=== PATIENT | male | born 1975 | race African-American/Black ===

== ENCOUNTER 2018-08-28 09:05 | Emergency (ER) | payer OTHER, MEDICAID ==
[~2018-08-28] VITALS: Ht 172.7 cm; Wt 100.0 kg
[2018-08-28] MEDS ORDERED: VISCOUS LIDOCAINE 2% 15 ML UDC PO STA (09:55)
[2018-08-28] MEDS ORDERED: SODIUM CHLORIDE 0.9% 1,000 ML IV ONE (09:55)
[2018-08-28] MEDS ORDERED: FAMOTIDINE 20MG/2ML VIAL IV STA (09:55)
[2018-08-28] MEDS ORDERED: MAGNESIUM/ALUMINUM HYDROXIDE/SIMETHICONE 30ML UDC PO STA (09:55)
[2018-08-28] MEDS ORDERED: ONDANSETRON HCL 4MG/2ML INJ IV STA (09:55)
[2018-08-28] MEDS ORDERED: KETOROLAC 30MG/ML VIAL IV STA (09:55)
[2018-08-28] MEDS ORDERED: METOCLOPRAMIDE HCL 10MG/2ML VIAL IV ONE (10:30)
[2018-08-28 10:37] LABS: BASOPHILS % 0.3 % (0.0-2.0); EOSINOPHILS % 0.4 % (0.0-5.0); HEMATOCRIT. 37.6 % (42.0-52.0); HEMOGLOBIN. 11.6 g/dL (14.0-18.0); LYMPHOCYTES % 16.4 % (20.0-50.0); MEAN CORPUSCULAR HEMOGLOBIN 26.6 pg (28.0-32.0); MEAN CORPUSCULAR VOLUME 86.3 fL (80.0-94.0); MEAN PLATELET VOLUME 9.9 fl (7.4-10.4); MONOCYTES % 5.2 % (2.0-8.0); NEUTROPHILS % 77.7 % (40.0-76.0); PLATELET 221 x1000/uL (130-400); RED BLOOD CELL COUNT 4.36 mill/uL (4.7-6.1); RED CELL DISTRIBUTION WIDTH 15.3 % (11.6-14.6)
[2018-08-28 10:42] LABS: CHLORIDE 105 mEq/L (98-107)
[2018-08-28 10:47] LABS: ETHANOL BLOOD < 10 mg/dL
[2018-08-28 11:25] LABS: CLARITY URINE CLEAR (CLEAR); COLOR URINE DARK YELLOW (YELLOW); KETONES URINE TRACE (NEGATIVE); LEUKOCYTE ESTERASE URINE NEGATIVE (NEGATIVE); NITRITE URINE NEGATIVE (NEGATIVE); OCCULT BLOOD URINE NEGATIVE (NEGATIVE); PH URINE 5.5 (4.5-8.0); PROTEIN URINE 2+ (NEGATIVE); SPECIFIC GRAVITY URINE 1.032 (1.005-1.030)
[2018-08-28 12:00] LABS: *AMPHETAMINES SCREEN URINE PRESUMTIVE POSITIVE (NEGATIVE); *BARBITURATES SCREEN URINE NEGATIVE (NEGATIVE); *BENZODIAZEPINES SCREEN URINE NEGATIVE (NEGATIVE); *COCAINE SCREEN URINE NEGATIVE (NEGATIVE)
[2018-08-28] MEDS ORDERED: MORPHINE SULFATE 10 MG/ML CPJ IV ONE (12:00)
[2018-08-28] MEDS ORDERED: AZITHROMYCIN 500 MG TABLET PO ONE (12:00)
[2018-08-28] MEDS ORDERED: CEFTRIAXONE SODIUM 250 MG/VIAL IM ONE (12:00)
[2018-08-28 12:01] LABS: CANNABINOID URINE SCREEN PRESUMTIVE POSITIVE (NEGATIVE); METHADONE URINE SCREEN NEGATIVE (NEGATIVE); OPIATES URINE SCREEN NEGATIVE (NEGATIVE); PHENCYCLIDINE URINE SCREEN NEGATIVE (NEGATIVE)
[2018-08-28] MEDS ORDERED: CEFTRIAXONE SODIUM 1 G/VIAL IM ONE (13:15)
[2018-08-28 13:58] VITALS: BP 115/82
== END 2018-08-28 14:01 | disposition home or self-care (01) ==
LOC: ER 09:05
DX: N12 Tubulo-interstitial nephritis, not specified as acute or chronic (principal); R18.8 Other ascites; F15.10 Other stimulant abuse, uncomplicated; F12.10 Cannabis abuse, uncomplicated; D72.829 Elevated white blood cell count, unspecified; F17.200 Nicotine dependence, unspecified, uncomplicated
CPT/HCPCS: 36415; 74176; 76770; 80053; 80305; 81003; 83690; 84484; 85025; 87086; 93005; 96372; 96374; 96375; 99284; G0482; J0696; J1885; J2270; J2765; J3490; J7030

== ENCOUNTER 2018-09-03 09:50 | Emergency (ER) | payer MEDICAID, OTHER ==
[~2018-09-03] VITALS: Ht 172.7 cm; Wt 100.0 kg
[2018-09-03 09:59] VITALS: BP 142/104
== END 2018-09-03 15:30 | disposition left against medical advice (07) ==
LOC: ER 09:50
DX: R10.9 Unspecified abdominal pain (principal); Z53.21 Procedure and treatment not carried out due to patient leaving prior to being seen by health care provider

== ENCOUNTER 2018-09-24 22:37 | Emergency (ER) | payer OTHER, MEDICAID ==
[~2018-09-24] VITALS: Ht 172.7 cm; Wt 91.0 kg
[2018-09-25] MEDS ORDERED: DICYCLOMINE 10 MG/5 ML ORAL SYR PO ONE (01:15)
[2018-09-25] MEDS ORDERED: MAGNESIUM/ALUMINUM HYDROXIDE/SIMETHICONE 30ML UDC PO ONE (01:15)
[2018-09-25] MEDS ORDERED: VISCOUS LIDOCAINE 2% 15 ML UDC PO ONE (01:15)
[2018-09-25 01:43] LABS: CLARITY URINE CLEAR (CLEAR); COLOR URINE DARK YELLOW (YELLOW); KETONES URINE NEGATIVE (NEGATIVE); LEUKOCYTE ESTERASE URINE NEGATIVE (NEGATIVE); NITRITE URINE NEGATIVE (NEGATIVE); OCCULT BLOOD URINE NEGATIVE (NEGATIVE); PH URINE 5.5 (4.5-8.0); PROTEIN URINE 2+ (NEGATIVE); SPECIFIC GRAVITY URINE 1.028 (1.005-1.030)
[2018-09-25 01:49] LABS: CHLORIDE 110 mEq/L (98-107)
[2018-09-25 01:52] LABS: INR 1.2; PROTHROMBIN TIME 11.9 sec (9.1-11.1)
[2018-09-25 01:53] LABS: *AMPHETAMINES SCREEN URINE PRESUMTIVE POSITIVE (NEGATIVE); *BARBITURATES SCREEN URINE NEGATIVE (NEGATIVE)
[2018-09-25 01:54] LABS: *BENZODIAZEPINES SCREEN URINE NEGATIVE (NEGATIVE); *COCAINE SCREEN URINE NEGATIVE (NEGATIVE); CANNABINOID URINE SCREEN PRESUMTIVE POSITIVE (NEGATIVE); METHADONE URINE SCREEN NEGATIVE (NEGATIVE); OPIATES URINE SCREEN NEGATIVE (NEGATIVE); PHENCYCLIDINE URINE SCREEN PRESUMTIVE POSITIVE (NEGATIVE)
[2018-09-25 02:00] LABS: BASOPHILS % 0.6 % (0.0-2.0); EOSINOPHILS % 0.9 % (0.0-5.0); HEMATOCRIT. 37.7 % (42.0-52.0); HEMOGLOBIN. 11.6 g/dL (14.0-18.0); LYMPHOCYTES % 24.6 % (20.0-50.0); MEAN CORPUSCULAR HEMOGLOBIN 25.4 pg (28.0-32.0); MEAN CORPUSCULAR VOLUME 82.5 fL (80.0-94.0); MEAN PLATELET VOLUME 10.1 fl (7.4-10.4); MONOCYTES % 7.6 % (2.0-8.0); NEUTROPHILS % 66.3 % (40.0-76.0); PLATELET 209 x1000/uL (130-400); RED BLOOD CELL COUNT 4.57 mill/uL (4.7-6.1)
[2018-09-25] MEDS ORDERED: MORPHINE SULFATE 10 MG/ML CPJ IM ONE (03:00)
[2018-09-25 05:00] VITALS: BP 132/93
== END 2018-09-25 05:18 | disposition home or self-care (01) ==
LOC: ER 22:37
DX: K29.70 Gastritis, unspecified, without bleeding (principal); G89.29 Other chronic pain; F15.10 Other stimulant abuse, uncomplicated; R10.84 Generalized abdominal pain; F12.10 Cannabis abuse, uncomplicated; F16.10 Hallucinogen abuse, uncomplicated; I50.9 Heart failure, unspecified; E66.9 Obesity, unspecified; Z68.30 Body mass index [BMI] 30.0-30.9, adult
CPT/HCPCS: 36415; 80053; 80305; 81003; 82962; 83690; 85025; 85610; 96372; 99284; J2270; Z7610

== ENCOUNTER 2018-09-26 06:24 | Emergency (ER) | payer MEDICAID, OTHER ==
[~2018-09-26] VITALS: Ht 172.7 cm; Wt 100.0 kg
[2018-09-26] MEDS ORDERED: KETOROLAC 30MG/ML VIAL IV STA (08:21)
[2018-09-26] MEDS ORDERED: SODIUM CHLORIDE 0.9% 1,000 ML IV ONE (08:21)
[2018-09-26 09:04] LABS: BASOPHILS % 0.6 % (0.0-2.0); EOSINOPHILS % 0.5 % (0.0-5.0); HEMATOCRIT. 37.3 % (42.0-52.0); HEMOGLOBIN. 11.2 g/dL (14.0-18.0); LYMPHOCYTES % 21.8 % (20.0-50.0); MEAN CORPUSCULAR HEMOGLOBIN 24.9 pg (28.0-32.0); MEAN PLATELET VOLUME 9.8 fl (7.4-10.4); MONOCYTES % 7.2 % (2.0-8.0); NEUTROPHILS % 69.9 % (40.0-76.0); PLATELET 228 x1000/uL (130-400); RED BLOOD CELL COUNT 4.49 mill/uL (4.7-6.1); RED CELL DISTRIBUTION WIDTH 16.8 % (11.6-14.6)
[2018-09-26 09:09] LABS: CHLORIDE 109 mEq/L (98-107)
[2018-09-26 09:10] LABS: CLARITY URINE CLEAR (CLEAR); COLOR URINE AMBER (YELLOW); KETONES URINE NEGATIVE (NEGATIVE); LEUKOCYTE ESTERASE URINE NEGATIVE (NEGATIVE); NITRITE URINE NEGATIVE (NEGATIVE); OCCULT BLOOD URINE NEGATIVE (NEGATIVE); PROTEIN URINE 2+ (NEGATIVE); SPECIFIC GRAVITY URINE 1.026 (1.005-1.030)
[2018-09-26 09:17] LABS: ETHANOL BLOOD < 10 mg/dL
[2018-09-26] MEDS ORDERED: IOHEXOL-300 100 ML BOTTLE ONE (11:28)
[2018-09-26 13:55] VITALS: BP 135/88
== END 2018-09-26 13:55 | disposition home or self-care (01) ==
LOC: ER 06:24
DX: R10.30 Lower abdominal pain, unspecified (principal); K40.20 Bilateral inguinal hernia, without obstruction or gangrene, not specified as recurrent; F12.10 Cannabis abuse, uncomplicated; F15.10 Other stimulant abuse, uncomplicated; F16.10 Hallucinogen abuse, uncomplicated; M54.30 Sciatica, unspecified side
CPT/HCPCS: 36415; 74177; 80053; 81003; 84484; 85025; 93005; 96374; 99284; G0482; J1885; J7030; Q9967; Z7610

== ENCOUNTER 2018-10-13 04:01 | Emergency (ER) | payer OTHER, MEDICAID ==
[~2018-10-13] VITALS: Ht 172.7 cm; Wt 100.0 kg
[2018-10-13] MEDS ORDERED: KETOROLAC 60MG/2ML VIAL IM STA (09:01)
[2018-10-13 09:27] VITALS: BP 130/79
== END 2018-10-13 09:27 | disposition home or self-care (01) ==
LOC: ER 04:01
DX: K21.9 Gastro-esophageal reflux disease without esophagitis (principal); I10 Essential (primary) hypertension
CPT/HCPCS: 96372; 99283; J1885

== ENCOUNTER 2021-04-04 10:02 | Emergency (ER) | payer OTHER ==
[~2021-04-04] VITALS: Ht 172.7 cm; Wt 106.0 kg
[2021-04-04] MEDS ORDERED: FUROSEMIDE 40MG TABLET PO ONE (18:45)
[2021-04-04 19:58] LABS: BASOPHILS % 0.7 % (0.0-2.0); EOSINOPHILS % 1.6 % (0.0-5.0); HEMATOCRIT. 37.5 % (42.0-52.0); HEMOGLOBIN. 11.9 g/dL (14.0-18.0); MEAN CORPUSCULAR HEMOGLOBIN 26.6 pg (28.0-32.0); MEAN CORPUSCULAR VOLUME 83.9 fL (80.0-94.0); MEAN PLATELET VOLUME 9.2 fl (7.4-10.4); MONOCYTES % 8.6 % (2.0-8.0); NEUTROPHILS % 63.1 % (40.0-76.0); PLATELET 223 x1000/uL (130-400); RED BLOOD CELL COUNT 4.47 mill/uL (4.7-6.1); RED CELL DISTRIBUTION WIDTH 17.4 % (11.6-14.6)
[2021-04-04 20:07] LABS: CHLORIDE 106 mEq/L (98-107)
[2021-04-04] MEDS ORDERED: TRAMADOL 50MG TABLET PO ONE (21:00)
[2021-04-05] MEDS ORDERED: TRAM-529 MT ×2 (00:47→01:52)
[2021-04-05 00:53] VITALS: BP 126/81
[2021-04-05] MEDS ORDERED: NAPR-1176 PO (02:24)
== END 2021-04-05 00:59 | disposition home or self-care (01) ==
LOC: ER 10:02
DX: I11.0 Hypertensive heart disease with heart failure (principal); I50.9 Heart failure, unspecified; K21.9 Gastro-esophageal reflux disease without esophagitis; G89.29 Other chronic pain; Z20.822 Contact with and (suspected) exposure to COVID-19
CPT/HCPCS: 36415; 71045; 80053; 83880; 84484; 85025; 87426; 93005; 99285